=== PATIENT | female | born 1995 | race Caucasian/White ===

== ENCOUNTER → 2016-10-09 | Outpatient (CLI) | payer OTHER ==
[~2016-10-09] MED LIST: CALC500C3; POLY335019 PO; PREN-63; PRLSR20 PO; RANI150T3 PO; VALA500T39 PO
[2016-10-09 16:08] LABS: MANUAL MICROSCOPIC REQUIRED? NO; REVIEW REQ? NO; URINE APPEARANCE CLEAR (CLEAR); URINE COLOR YELLOW; URINE PH 5.5 (4.5-7.5)
[2016-10-09 16:09] LABS: URINE BILIRUBIN NEG (NEG); URINE NITRITE NEG (NEG); UROBILINOGEN NEG (NEG)
== END | disposition home or self-care (01) ==
LOC: C.LABSPEC 15:38
PROVIDERS: ATTEND Obstetrics & Gynecology
DX: O99.330 Smoking (tobacco) complicating pregnancy, unspecified trimester (principal); F17.200 Nicotine dependence, unspecified, uncomplicated

== ENCOUNTER → 2016-10-12 | Outpatient (CLI) | payer OTHER ==
[2016-10-12 14:41] LABS: BASO % 0.2 %; BASO ABS # 0.02 K/uL (0-0.2); COMPLETE YES; EOS % 1.6 %; HEMATOCRIT 39.2 % (37-47); IG% 0.3 %; LYMPH % 15.8 %; LYMPH ABS # 1.95 K/uL (1.2-3.4); MEAN CELL VOLUME 88.1 fL (80-100); MEAN CORPUSCULAR HEMOGLOBIN 30.1 pg (25-34); MEAN CORPUSCULAR HGB CONC 34.2 g/dl (32-36); MEAN PLATELET VOLUME 10.5 fL (7.4-10.4); MONO % 6.1 %; PLATELET COUNT 310 K/uL (130-400); RED BLOOD COUNT 4.45 M/uL (4.2-5.4); WHITE BLOOD COUNT 12.38 K/uL (4.8-10.8)
[2016-10-15 00:49] LABS: CHLAMYDIA TRACH RNA*** NOT DETECTED (NOT DETECTED); GC (NEIS GONORRHOEAE)RNA** NOT DETECTED (NOT DETECTED)
== END | disposition home or self-care (01) ==
LOC: C.LAB1850 12:36
PROVIDERS: ATTEND Obstetrics & Gynecology
DX: Z34.93 Encounter for supervision of normal pregnancy, unspecified, third trimester (principal)

== ENCOUNTER → 2016-10-12 | Outpatient (CLI) | payer OTHER | END | disposition home or self-care (01) | LOC: C.PAPS 11:36 | PROVIDERS: ATTEND Obstetrics & Gynecology | DX: Z12.4 Encounter for screening for malignant neoplasm of cervix (principal); Z33.1 Pregnant state, incidental ==

== ENCOUNTER → 2016-12-04 | Outpatient (CLI) | payer OTHER ==
[2016-12-04 16:51] LABS: BLOOD UREA NITROGEN 5 mg/dl (7-18); BUN/CREATININE RATIO 8.5 (10-20); CALCIUM 8.6 mg/dl (8.5-10.1); CARBON DIOXIDE 26 mmol/L (21-32); CHLORIDE 107 mmol/L (98-107); CREATININE 0.63 mg/dl (0.60-1.20); GLUCOSE 112 mg/dl (70-99); POTASSIUM 3.5 mmol/L (3.5-5.1); SODIUM 139 mmol/L (136-145)
[2016-12-04 16:55] LABS: CHOLESTEROL 170 mg/dl (0-200); CHOLESTEROL/HDL RATIO 3.1; HDL CHOLESTEROL 54 mg/dl; LDL CHOLESTEROL CALCULATED 97 mg/dl; TRIGLYCERIDES 94 mg/dl (0-150); VERY LOW DENSITY LIPOPROT CALC 19 mg/dl
== END | disposition home or self-care (01) ==
LOC: C.LABPBG 13:38
PROVIDERS: ATTEND Physician Assistant
DX: Z00.00 Encounter for general adult medical examination without abnormal findings (principal)

== ENCOUNTER → 2016-12-16 | Outpatient (CLI) | payer OTHER ==
[2016-12-16 18:26] LABS: GTGD 50 Grams
== END | disposition home or self-care (01) ==
LOC: C.LAB1850 12:22
PROVIDERS: ATTEND Obstetrics & Gynecology
DX: Z34.92 Encounter for supervision of normal pregnancy, unspecified, second trimester (principal)

== ENCOUNTER → 2017-03-11 | Outpatient (CLI) | payer OTHER ==
[2017-03-11 14:59] LABS: URINE APPEARANCE CLEAR (CLEAR); URINE BILIRUBIN NEG (NEG); URINE COLOR YELLOW; URINE NITRITE NEG (NEG); URINE PH 7.5 (4.5-7.5); URINE SPECIFIC GRAVITY 1.015 (1.000-1.030); UROBILINOGEN NEG (NEG)
[2017-03-11 15:01] LABS: HEMATOCRIT 38.4 % (37-47)
[2017-03-11 15:02] LABS: MANUAL MICROSCOPIC REQUIRED? NO; REVIEW REQ? NO
[2017-03-11 15:39] LABS: GTGD 50 Grams
== END | disposition home or self-care (01) ==
LOC: C.LAB1850 12:56
PROVIDERS: ATTEND Obstetrics & Gynecology
DX: Z34.93 Encounter for supervision of normal pregnancy, unspecified, third trimester (principal)

== ENCOUNTER 2017-04-22 16:22 | Outpatient (CLI) | payer BC ==
[~2017-04-22] VITALS: Ht 177.8 cm; Wt 102.3 kg
[~2017-04-22 16:22] MED LIST changes: -CALC500C3; -PREN-63; -RANI150T3 PO; -VALA500T39 PO
[2017-04-22] MEDS ORDERED: PREN-63 (17:07)
[2017-04-22] MEDS ORDERED: RANI150T3 PO (17:07)
[2017-04-22] MEDS ORDERED: CALC500C3 (17:07)
[2017-04-22 18:44] VITALS: Ht 177.8 cm; Wt 102.3 kg
== END 2017-04-22 19:05 | disposition home or self-care (01) ==
LOC: C.OPB 16:22 → C.LD 16:22 → C.OPB 19:05
PROVIDERS: ATTEND Obstetrics & Gynecology
DX: O62.9 Abnormality of forces of labor, unspecified (principal); Z3A.30 30 weeks gestation of pregnancy

== ENCOUNTER 2017-05-10 11:48 | Inpatient (IN) | payer BC ==
[~2017-05-10] VITALS: Ht 177.8 cm; Wt 104.3 kg
[~2017-05-10 11:48] MED LIST changes: +CALC500C3; -POLY335019 PO; +PREN-63; -PRLSR20 PO; +RANI150T3 PO
[2017-05-10] MEDS ORDERED: LACTATED RINGER'S 1000ML 1,000 ML IV PRN (16:01)
[2017-05-10] MEDS ORDERED: LACTATED RINGER'S 1000ML 500 ML IV PRN ×2 (16:01→19:50)
[2017-05-10] MEDS ORDERED: OXYTOCIN 30 UNITS/500ML NSS IV PRN (16:15)
[2017-05-10] MEDS ORDERED: PENICILLIN G POTASSIUM IV 3 MU in DEXTROSE 5% 100ML 100 ML IV PRN (16:15)
[2017-05-10] MEDS ORDERED: PENICILLIN G POTASSIUM IV 6 MU in DEXTROSE 5% 250ML 250 ML IV ONE (16:15)
[2017-05-10 16:21] LABS: HEMATOCRIT 38.1 % (37-47); MEAN CELL VOLUME 89.2 fL (80-100); MEAN CORPUSCULAR HGB CONC 33.6 g/dl (32-36); MEAN PLATELET VOLUME 10.9 fL (7.4-10.4); PLATELET COUNT 242 K/uL (130-400); RED BLOOD COUNT 4.27 M/uL (4.2-5.4); WHITE BLOOD COUNT 14.94 K/uL (4.8-10.8)
[2017-05-10] MEDS: LACTATED RINGER'S 1000ML 1,000 ML IV SCH ×2 (16:31→19:40)
[2017-05-10 16:52] VITALS: Ht 177.8 cm; Wt 104.3 kg
[2017-05-10] MEDS ORDERED: VALA500T39 PO (16:55)
[2017-05-10] MEDS ORDERED: EpHEDrine SULFATE INJ 50 MG/ML AMP ONE (18:57)
[2017-05-10] MEDS ORDERED: FENTANYL 2MCG/ML ROPIV 1.25MG/ML 100ML BAG EPI ONE (18:57)
[2017-05-10] MEDS ORDERED: BUPIVACAINE 0.25% 30 ML VIAL ONE (18:57)
[2017-05-10] MEDS ORDERED: FENTANYL CITRATE INJ 50 MCG/1 ML 2 ML VIAL ONE (18:58)
[2017-05-10] MEDS ORDERED: NALOXONE HCL INJ 1 MG in SODIUM CHLORIDE 0.9% 1000ML 1,000 ML IV PRN ×4 (19:50)
[2017-05-10] MEDS ORDERED: PROMETHAZINE HCL INJ 25 MG in SODIUM CHLORIDE 0.9% 50ML 50 ML IV PRN (20:00)
[2017-05-10] MEDS ORDERED: DiphenhydrAMINE HCL 50 MG/ML VIAL IV PRN (20:00)
[2017-05-10] MEDS ORDERED: ONDANSETRON INJ 2 MG/ML 2 ML VIAL IV PRN (20:00)
[2017-05-10] MEDS ORDERED: NALOXONE HCL INJ 0.4 MG/1 ML VIAL/CARP IV PRN (20:00)
[2017-05-10] MEDS ORDERED: RANITIDINE HCL 150 MG TAB PO ONE (20:00)
[2017-05-10] MEDS ORDERED: METOCLOPRAMIDE HCL INJ 20 MG in SODIUM CHLORIDE 0.9% 50ML 50 ML IV PRN (20:00)
[2017-05-10] MEDS ORDERED: FENTANYL 2MCG/ML ROPIV 1.25MG/ML 100ML BAG EPI PRN (20:00)
[2017-05-10] MEDS ORDERED: EpHEDrine SULFATE INJ 50 MG/ML AMP IV PRN (20:00)
[2017-05-10] MEDS ORDERED: NALBUPHINE HCL INJ 10 MG/ML AMP IV PRN (20:00)
[2017-05-11] VITALS (7 sets, daily range): BP systolic 110–132; BP diastolic 68–81; PULSE 67–92; TEMP 36.4–37.2; O2SAT 98–100
[2017-05-11] MEDS ORDERED: LACTATED RINGER'S 1000ML 1,000 ML IV SCH (00:43)
[2017-05-11] MEDS ORDERED: HYDROCORTISONE ACETATE 25 MG SUPP PR PRN (00:45)
[2017-05-11] MEDS ORDERED: ACETAMINOPHEN 325 MG TAB PO PRN (00:45)
[2017-05-11] MEDS ORDERED: BENZOCAINE 20% AER SPR 82.5 GM CAN EXT PRN (00:45)
[2017-05-11] MEDS ORDERED: OXYTOCIN 30 UNITS/500ML NSS IV PRN (00:45)
[2017-05-11] MEDS ORDERED: LANOLIN OINT EXT PRN ×2 (00:45)
[2017-05-11] MEDS ORDERED: SUPERCREAM 0.870 % 15GM JAR EXT PRN (00:45)
[2017-05-11] MEDS ORDERED: OXYCODONE/ACETAMINOPHEN 5-325 TAB PO PRN (00:45)
[2017-05-11] MEDS ORDERED: DIPHTHERIA/TETANUS/PERTUSSIS 0.5 ML SYR/VIAL IM. ONE (00:45)
--- NOTE | 2017-05-11 06:01 | Vaginal Delivery Summary ---
Vaginal Delivery Summary 21yo IOL for gHTN. She was induced with AROM/Pitocin, and an epidural was provided for pain relief. I was called to the room for delivery after she had brought the head to [facility], and with the next pushes, she delivered the 's head. The right shoulder was anterior, and the right arm was nuchal; it was gently reduced, then the left / posterior shoulder was delivered without difficulty. The remainder of the infant then followed. The cord was doubly clamped and then cut by the FOB. It was noted to be fairly short. The placenta then delivered spontaneously and intact with a 3VC. There were no perineal lacerations, and the bilateral labial abrasions were hemostatic and left without suture. The fundus was firm and lochia minimal immediately after delivery.
[2017-05-11] MEDS: IBUPROFEN 600 MG TAB PO PRN ×3 (06:34→20:30)
[2017-05-11] MEDS: PRENATAL VITAMIN TAB PO SCH (08:23)
[2017-05-11] MEDS: DOCUSATE SODIUM 100 MG CAP PO SCH ×2 (08:23→20:01)
--- NOTE | 2017-05-11 11:23 | Anesthesia Procedure Note ---
Anesthesia Epidural Removal Nt Date & Time May 11, 2017 at 11:23 Vital Signs Pain Intensity: 1.0 Vital Signs Past 12 Hours Date Time Temp Pulse Resp B/P (MAP) Pulse Ox O2 Delivery O2 Flow Rate FiO2 05/11/17 08:05 36.7 77 18 123/81 (95) 99 Room Air 05/11/17 08:05 99 Room Air 05/11/17 03:35 36.7 70 18 117/74 (88) Room Air 05/11/17 02:15 Room Air 05/11/17 02:15 36.4 78 20 132/68 (89) Room Air Notes Mental Status: alert / awake / arousable, participated in evaluation Nausea / Vomiting: adequately controlled Pain: adequately controlled Airway Patency, RR, SpO2: stable & adequate BP & HR: stable & adequate Hydration State: stable & adequate Neuraxial Anesthesia: was administered Anesthetic Complications: no major complications apparent, pt satisfied with anesthetic care Epidural: removed without complications, with tip intact
[2017-05-12 07:20] VITALS: BP 116/77; PULSE 66; TEMP 36.8; O2SAT 99
--- NOTE | 2017-05-12 07:48 | Progress Note ---
Subjective May 12, 2017. Subjective conversation w/ patient, physical exam, chart review, lab review Ambulation: ambulating normally Voiding: no voiding problems Diet Tolerance: Regular Diet Lochia: Moderate Objective Vital Signs Date Time Temp Pulse Resp B/P (MAP) Pulse Ox O2 Delivery O2 Flow Rate FiO2 05/11/17 23:15 99 Room Air 05/11/17 23:15 36.4 67 20 129/76 (93) 99 Room Air 05/11/17 20:25 36.8 72 20 114/76 (89) 99 Room Air 05/11/17 16:05 100 Room Air 05/11/17 16:05 36.4 76 18 115/80 (92) 100 Room Air 05/11/17 12:05 37.2 92 18 110/72 (85) 98 Room Air 05/11/17 08:05 36.7 77 18 123/81 (95) 99 Room Air 05/11/17 08:05 99 Room Air Physical Exam General Appearance: WELL-APPEARING Respiratory/Chest: lungs clear Abdomen: non tender Fundus: Firm Extremities: no calf tenderness Laboratory Results Last 24 Hours Test 05/12/17 07:17 Assessment and Plan Post- Day#: 1 Continue Routine Care: ccc
[2017-05-12 07:59] LABS: HEMATOCRIT 34.6 % (37-47)
[2017-05-12] MEDS: DOCUSATE SODIUM 100 MG CAP PO SCH (09:02)
[2017-05-12] MEDS: PRENATAL VITAMIN TAB PO SCH (09:02)
[2017-05-12] MEDS: IBUPROFEN 600 MG TAB PO PRN ×2 (09:03→15:49)
[2017-05-12 12:30] VITALS: BP 114/71; PULSE 69; TEMP 36.8; O2SAT 99
--- NOTE | 2017-05-12 13:53 | Discharge Instructions ---
Discharge Instructions Date of Service May 12, 2017. Admission Reason for Admission: Induction Discharge Discharge Diagnosis / Problem: normal delivery Discharge Goals Goal(s): Routine recovery after delivery Medications Continue Dispensed Medications: supercream, dermaplast, tucks, lansinoh Activity Recommendations Activity Limitations: per Instructions/Follow-up section . Instructions / Follow-Up Instructions / Follow-Up ACTIVITY RECOMMENDATIONS: * Gradual return to full activity over the next 2-3 weeks. * No lifting - nothing heavier than baby over the next 2-3 weeks. * Do not engage in vigorous exercise, sexual activity or sports until cleared by your physician. * Do not drive or operate any motorized equipment until cleared by your physician. * You may shower/bathe daily. MEDICATIONS: For discomfort or pain, you may use Acetaminophen (Tylenol), Ibuprofen (Advil), or Naproxen (Aleve) following the package directions. For constipation you may use Colace following the package directions. BREAST CARE: If you are not breast feeding: * Wear a supportive bra 24 hours a day for one to two weeks. * Avoid stimulating your breasts and nipples as much as possible during the first few weeks after delivery. * When taking a shower, have the warm water hit your back, not breasts. * When your breasts feel full, apply ice packs. Usually three to four times a day helps ease the discomfort. * Take a mild pain medication (Tylenol / Motrin) when you are uncomfortable. If breast feeding: * Use breast milk to lubricate nipples. Lansinoh cream may be used for sore nipples. You do not need to remove cream prior to breast feeding. If using a different brand of cream, check the label for directions regarding removal of cream prior to nursing. * Wear a supportive bra. * If having problems with breasts or breast feeding, call a law firm consultant or your health care provider. EPISIOTOMY CARE: After delivery, if you have an episiotomy (stitches), the following steps will ease discomfort and aid healing. * For the first 24 hours after delivery, place ice packs next to your episiotomy to help reduce swelling. * After the first 24 hour-period, sitz baths, either portable or in the tub, are suggested. A shower with a shower arm sprayed over the episiotomy may be comforting. * [place] care should be done after each voiding and bowel movement. Squirt warm water from a plastic bottle over the perineum (region of the body between the anus and urinary opening) and pat dry. * Use Dermoplast to ease discomfort. Shake container. [place] directly over the episiotomy. Place a Tucks on a clean sanitary pad next to your episiotomy. SPECIAL CARE INSTRUCTIONS: When you are discharged from the hospital, it is important for you to follow the instructions listed below: * During the first week at home, you should be able to care for yourself and your baby. In addition, the usual light household activities are encouraged. * Limit your activities to the way you feel. Do not try to clean the house or move furniture. Be sensible. * If you actively engage in sports and have done so up until the time of your delivery, you may resume these activities as soon as you feel able. This may take up to one month or even longer. Use good judgment. * Continue to take your vitamins for at least six weeks after the of your baby. * Your diet need not be limited unless you were on a special diet before your delivery. Breast-feeding mothers need around 2500 calories per day and at least 64-80 ounces of fluid per day (8 to 10 glasses). * You should eat foods from the four major food groups. Crash diets or fad diets are to be avoided. Eating lean meats, fresh fruits and vegetables, low-fat dairy products, high fiber foods and a regular exercise program, will help you get back to your pre- weight without putting your health at risk. * Constipation is sometimes a problem after delivery. Take a mild laxative as needed. If breast feeding, Milk of Magnesia is acceptable to use. You may use a suppository or Fleets enema if no episiotomy. * A daily shower or tub bath is suggested. Be sure to thoroughly and gently dry the perineum. * A bloody vaginal discharge will usually continue until around four weeks post . A small amount of bleeding may continue for as long as six weeks. Vaginal discharge changes from the bright red bleeding after delivery to pink then brownish and finally yellowish-pink before becoming white and disappearing. * Bleeding may increase with activity. Your first period may come in 4-8 weeks. If you are breast feeding, your period may be delayed even longer. * [place] (sex) can begin whenever both you and your partner feel comfortable and do not have any form of genital infection. It is recommended that you wait at least six weeks for internal and external healing to occur. If you have questions, please talk to your health care practitioner. A condom should be used to prevent infection and . * Foreplay, gentle intercourse and lubrication is very important the first several times to prevent pain. A water-based lubricant such as K-Y jelly or Astroglide may be used. * If you have RH negative blood and your baby is RH positive, you will receive RHOGAM by injection prior to discharge. The nurse will give you a card to keep with you that has the date and place that you received RHOGAM after delivery. * During your care, you had a Rubella screen done to check for the presence of rubella antibodies in your blood. If your test was negative, you will receive a Rubella vaccine prior to discharge. This vaccine may cause a fever, soreness at the injection site and flu-like symptoms. If these symptoms persist, notify your health care practitioner. is not advised for one month after a Rubella vaccine. * Verbalizes understanding of car seat law as reviewed with patient nursing. * Car Seat hand-out given and reviewed with patient by nursing. * Shaken baby information reviewed with patient by nursing. Call you doctor if: * Heavy bleeding (saturating several pads an hour) or passing clots the size of your fist. * A fever >101 degrees F (38.3 degrees C) on two occasions four hours apart and /or chills. * Unusual pain in the pelvic or vaginal areas. * "Baby Blues" lasting longer than two weeks. If you have any questions or concerns, call your health care practitioner at . FOLLOW UP VISIT: * Please call the office at to schedule a 6 week examination. It is important you keep this appointment. It is important for you to make arrangements for either yearly or twice yearly check-ups thereafter. Current Hospital Diet Patient's current hospital diet: Regular OB Diet Discharge Diet Recommended Diet: Regular OB Diet Pending Studies Studies pending at discharge: no Medical Emergencies . Who to Call and When: Medical Emergencies: If at any time you feel your situation is an emergency, please call 911 immediately. . Non-Emergent Contact Non-Emergency issues call your: [employer] . . "Provider Documentation" section prepared by Rachel Lira. . VTE Core Measure Inpt VTE Proph given/why not?: Treatment not indicated
[2017-05-12 16:00] VITALS: BP 124/77; PULSE 72; TEMP 36.9
[2017-05-12 16:49] VITALS: BP_DIAS 77; PULSE 72; TEMP 36.9
== END 2017-05-12 20:55 | disposition home or self-care (01) | DRG 775 ==
LOC: C.LD 14:56 → C.OBG 05-11 02:07
PROVIDERS: ADMIT Obstetrics & Gynecology; ATTEND Obstetrics & Gynecology
PROC: 3E033VJ Introduction of Other Hormone into Peripheral Vein, Percutaneous Approach (ICD-10-PCS; principal; 2017-05-11)
PROC: 10E0XZZ Delivery of Products of Conception, External Approach (ICD-10-PCS; principal; 2017-05-11)
DX: O80 Encounter for full-term uncomplicated delivery (principal); Z3A.37 37 weeks gestation of pregnancy; Z37.0 Single live birth

== ENCOUNTER 2021-09-08 00:27 | Inpatient (IN) ==
[2021-09-08] MEDS ORDERED: OXYTOCIN 30 UNITS/500 ML BAG IV PRN ×2 (00:42→00:50)
[2021-09-08] MEDS ORDERED: LACTATED RINGER'S 1,000 ML IV PRN (00:42)
[2021-09-08] MEDS ORDERED: ACETAMINOPHEN 325 MG TAB PO PRN (00:50)
[2021-09-08] MEDS ORDERED: BENZOCAINE 20% AER SPR 82.5 GM CAN EXT PRN (00:50)
[2021-09-08] MEDS ORDERED: SUPERCREAM 0.870% 15 GM JAR EXT PRN (00:50)
[2021-09-08] MEDS ORDERED: DIPHTHERIA/TETANUS/PERTUSSIS 0.5 ML SYR/VIAL IM ONE (00:50)
[2021-09-08] MEDS ORDERED: HYDROCORTISONE ACETATE 25 MG SUPP PR PRN (00:50)
[2021-09-08] MEDS ORDERED: bisacodyL 10 MG SUPP PR PRN (00:50)
[2021-09-08 01:06] LABS: Hemoglobin 12.4 g/dL (12.0-16.0); Mean Corpuscular Hemoglobin 28.8 pg (25-34); Mean Corpuscular Hgb Conc 32.6 g/dL (32-36); Mean Corpuscular Volume 88.2 fL (80-100); Mean Platelet Volume 11.3 fL (7.4-10.4); Platelet Count 261 K/uL (130-400); RDW Coefficient of Variation 14.2 % (11.5-14.5); RDW Standard Deviation 46.4 fL (36.4-46.3); Red Blood Count 4.31 M/uL (4.2-5.4); White Blood Count 19.01 K/uL (4.8-10.8)
[2021-09-08] MEDS ORDERED: LIDOCAINE 1% LOCAL 20 ML VIAL ONE (01:45)
[2021-09-08] MEDS: IBUPROFEN 600 MG TAB PO PRN ×2 (06:34→19:49)
[2021-09-08] MEDS: PRENATAL VITAMIN 1 TAB PO SCH (08:16)
[2021-09-08] MEDS: DOCUSATE SODIUM 100 MG CAP PO SCH ×2 (08:16→19:49)
[2021-09-08] MEDS: FERROUS SULFATE 325 MG TAB PO SCH (08:16)
[2021-09-08] MEDS ORDERED: FLUARIX QUADRIVALENT 0.5 ML SYR IM ONE (09:00)
--- NOTE | 2021-09-09 05:53 | Obstetrical Progress Note ---
Date of Service <Bobby Stone DO - Last Filed: 09/09/21 07:11> September 09, 2021 Assessment & Plan <Bobby Stone DO - Last Filed: 09/09/21 07:11> (1) Encounter for care and examination after delivery: 26 yo post day 1 from vaginal delivery, doing well. -Continue routine post care. - vital signs reviewed and WNL. (Tmax 37.1) -Blood type O+, GBS +, Rubella [place] -Encourage ambulation, monitor and control pain with Motrin, tylenol PRN, resume regular diet, monitor lochia. -encourage breast feeding. -hemoglobin 11.5 -Discussed discharge with patient. Patient will most likely stay today due to GBS+. <Shaye Melgoza MD - Last Filed: 09/09/21 08:19> (1) Encounter for care and examination after delivery: Subjective <Bobby Stone - Last Filed: 09/09/21 07:11> Ambulation: ambulating normally Voiding: no voiding problems Passing Gas:: Yes Diet Tolerance:: regular diet Lochia:: Small Feeding Type:: breast feeding Current Pain Level(1-10): 0 Review of Systems Denies fever, chills, sweats Denies shortness of breath, difficulty breathing, chest pain, palpitations, chest pressure. Denies breast pain. Denies dysuria. Denies headache or changes in vision Physical Exam <Bobby Stone - Last Filed: 09/09/21 07:11> General: Alert, oriented. No acute distress. Cardiac: Regular rate and rhythm, no murmurs/rubs/gallops. Respiratory: Clear to auscultation bilaterally a/p, no wheezes/rales/rhonchi. No increased work of breathing. Symmetrical chest rise. No respiratory distress. Abdomen: Soft, nontender, nondistended. Bowel sounds present. Uterus: Uterine fundus firm, palpable 2 cm below umbilicus. Lower Extremities: No lower extremity edema or swelling. No deep calf pain. Stephanie's negative bilaterally Results & Data ([facility]) <Bobby Mcgowanguerokarin - Last Filed: 09/09/21 07:11> Vital Signs (Past 12 Hours) Vital Signs Temp Pulse Resp BP Pulse Ox 09/08/21 23:00 36.7 C 72 16 123/79 98 09/08/21 19:40 36.5 C 88 16 127/79 96 <Shaye Melgoza MD - Last Filed: 09/09/21 08:19> Co-Signing Physician Notes Resident Physician Supervision Note: I interviewed and examined the patient. Discussed with Dr. Stone and agree with findings and plan as documented in the note. Any exceptions or clarifications are listed here: PP1 s/p en route, doing well. VSS, exam benign and wnl. Continue routine pp care Documented By: Shaye Melgoza MD Resident Activity Tracking <Bobby Stone DO - Last Filed: 09/09/21 07:11> Resident Involvement: Resident Care Provided Care Provided: OB Delivery
[2021-09-09] MEDS: IBUPROFEN 600 MG TAB PO PRN ×2 (06:30→20:19)
[2021-09-09 06:47] LABS: Hematocrit (blood only) 35.2 % (37-47); Hemoglobin 11.5 g/dL (12.0-16.0)
[2021-09-09] MEDS: DOCUSATE SODIUM 100 MG CAP PO SCH ×2 (08:30→21:42)
[2021-09-09] MEDS: FERROUS SULFATE 325 MG TAB PO SCH (08:30)
[2021-09-09] MEDS: PRENATAL VITAMIN 1 TAB PO SCH (08:30)
[2021-09-09] MEDS ORDERED: bisacodyL 5 MG TABEC PO SCH (20:00)
[2021-09-10 00:52] VITALS: O2SAT 98
--- NOTE | 2021-09-10 06:26 | Obstetrical Progress Note ---
Date of Service <Bobby Stone DO - Last Filed: 09/10/21 07:17> September 10, 2021 Assessment & Plan <Bobby Stone DO - Last Filed: 09/10/21 07:17> (1) Encounter for care and examination after delivery: 26 yo post day 2 from vaginal delivery, doing well. -Continue routine post care. - vital signs reviewed and WNL. (Tmax 37.1) -Blood type O+, GBS +, Rubella [place] -Encourage ambulation, monitor and control pain with Motrin, tylenol PRN, resume regular diet, monitor lochia. -encourage breast feeding. -hemoglobin 11.5 -Discussed discharge with patient. Patient will follow up with Dr. Tafoya in [facility] in 6 weeks. <Gretchen Mcmillan, - Last Filed: 09/10/21 07:53> (1) Encounter for care and examination after delivery: Subjective <Bobby Stone DO - Last Filed: 09/10/21 07:17> Ambulation: ambulating normally Voiding: no voiding problems Passing Gas:: Yes Diet Tolerance:: regular diet Lochia:: Small Feeding Type:: breast feeding Current Pain Level(1-10): 0 Review of Systems Denies fever, chills, sweats Denies shortness of breath, difficulty breathing, chest pain, palpitations, chest pressure. Denies breast pain. Denies dysuria. Denies headache or changes in vision Physical Exam <Bobby Stone DO - Last Filed: 09/10/21 07:17> General: Alert, oriented. No acute distress. Cardiac: Regular rate and rhythm, no murmurs/rubs/gallops. Respiratory: Clear to auscultation bilaterally a/p, no wheezes/rales/rhonchi. No increased work of breathing. Symmetrical chest rise. No respiratory distress. Abdomen: Soft, nontender, nondistended. Bowel sounds present. Uterus: Uterine fundus firm, palpable 2 cm below umbilicus. Lower Extremities: No lower extremity edema or swelling. No deep calf pain. Stephanie's negative bilaterally Results & Data ([facility]) <Bobby Stone DO - Last Filed: 09/10/21 07:17> Vital Signs (Past 12 Hours) Vital Signs Temp Pulse Resp BP Pulse Ox 09/10/21 00:26 36.7 C 76 18 107/71 98 09/09/21 19:56 36.8 C 88 18 121/70 99 <Gretchen Mcmillan DO - Last Filed: 09/10/21 07:53> Co-Signing Physician Notes Resident Physician Supervision Note: I interviewed and examined the patient. Discussed with Dr. Stone and agree with findings and plan as documented in the note. Any exceptions or clarifications are listed here: PPD#2 doing well. Reviewed DC instructions, followup 6w pp in office. Documented By: Gretchen Mcmillan DO Resident Activity Tracking <Bobby Stone DO - Last Filed: 09/10/21 07:17> Resident Involvement: Resident Care Provided Care Provided: OB Delivery
[2021-09-10] MEDS: DOCUSATE SODIUM 100 MG CAP PO SCH (08:25)
[2021-09-10] MEDS: PRENATAL VITAMIN 1 TAB PO SCH (08:25)
[2021-09-10] MEDS: FERROUS SULFATE 325 MG TAB PO SCH (08:26)
[2021-09-10] MEDS: IBUPROFEN 600 MG TAB PO PRN (08:26)
[2021-09-10 10:02] VITALS: BP 131/77; PULSE 94; TEMP 98.6
--- NOTE | 2021-09-22 13:22 | Delivery Summary ---
DATE OF SERVICE: 09/08/2021 PROCEDURE: Normal spontaneous vaginal delivery with second-degree perineal laceration repair. SURGEON: Xavi Tafoya MD. PREOPERATIVE DIAGNOSES: 1. Single intrauterine at 39 weeks 5 days gestational age. 2. Spontaneous labor. 3. Tobacco use during . 4. Group B streptococcus positive. POSTOPERATIVE DIAGNOSES: 1. Single intrauterine at 39 weeks 5 days gestational age. 2. Spontaneous labor. 3. Tobacco use during . 4. Group B streptococcus positive. 5. Status post procedure. ESTIMATED BLOOD LOSS: 200 mL. DRAINS: None. FLUIDS: Continuous lactated Ringer. URINE OUTPUT: Not measured. COMPLICATIONS: None. FINDINGS: Viable female with weight 8 pounds 1 ounce and Apgars of 8 and 9 at one and five m inutes respectively. INDICATIONS: Suha is a 26-year-old , admitted at 39 weeks 5 days' gestational age, in active labor. The patient progressed rapidly in labor and felt a strong urge to push. DESCRIPTION OF PROCEDURE: The patient progressed to 10 cm dilated, 100% effaced, positive 2 station, pushed over intact perineum and delivered a viable female with weight and Apgars as noted abo ve. Head of the delivered in RANI position, restituted to right transverse. No nuchal cord w as noted. Body and shoulders quickly followed. was noted to be vigorous upon delivery. One minute delayed cord clamping was initiated. Cord was then double clamped and cut. Cord blood was o btained. Attention was then turned to delivery of placenta, which was delivered intact, 3-vessel cor d, gentle cord traction. On inspection of the perineum, vagina, cervix, there was noted to be a seco nd-degree perineal laceration, which was repaired with a traditional crown stitch using 2-0 Vicryl. Needle, sponge, and instrument counts were correct at the completion of the case. Both mother and ne maría are stable in the immediate post-delivery period. Job ID: [id number]
== END 2021-09-10 13:25 | disposition home or self-care (01) | DRG 807 ==
LOC: 4S1 00:27 → 4S2 02:53

== ENCOUNTER 2023-12-16 22:34 | Observation (INO) ==
[2023-12-17 00:27] LABS: Basophils # (auto) 0.06 K/uL (0.00-0.20); Basophils % (auto) 0.5 %; Eosinophils # (auto) 0.41 K/uL (0.00-0.50); Eosinophils % (auto) 3.6 %; Hematocrit (blood only) 42.8 % (37.0-47.0); Hemoglobin 13.6 g/dl (12.0-16.0); Immature Granulocytes # (auto) 0.04 K/uL (0.01-0.20); Immature Granulocytes % (auto) 0.4 %; Lymphocytes # (auto) 2.74 K/uL (1.20-3.40); Lymphocytes % (auto) 24.2 %; Mean Corpuscular Hemoglobin 28.9 pg (25.0-34.0); Mean Corpuscular Hgb Conc 31.8 g/dL (32.0-36.0); Mean Corpuscular Volume 91.1 fL (80.0-100.0); Mean Platelet Volume 10.2 fL (9.4-12.4); Monocytes # (auto) 0.81 K/uL (0.11-0.59); Monocytes % (auto) 7.2 %; Neutrophils # (auto) 7.25 K/uL (1.40-6.50); Neutrophils % (auto) 64.1 %; Platelet Count 257 K/uL (130-400); RDW Coefficient of Variation 12.1 % (11.5-14.5); RDW Standard Deviation 40.4 fL (36.4-46.3); White Blood Count 11.31 K/ul (4.8-10.8)
[2023-12-17] MEDS: SODIUM CHLORIDE 0.9% 1,000 ML IV ONE (00:30)
[2023-12-17] MEDS: dexAMETHasone**PF** 10 MG/ML VIAL IV ONE (00:30)
[2023-12-17] MEDS: AMPICILLIN/SULBACTAM SOD 3,000 MG in SODIUM CHLOR 0.9% MINI-B 100 ML IV STA (00:30)
[2023-12-17 00:44] LABS: Alanine Aminotransferase 15 U/L (7-52); Albumin Globulin Ratio 1.5 (0.9-2); Albumin Level 4.5 gm/dl (3.4-5.0); Alkaline Phosphatase 110 U/L (34-104); Anion Gap 7 (3-11); BUN Creatinine Ratio 15.3 (10-20); Bilirubin,Total 0.4 mg/dl (0.2-1.0); Blood Urea Nitrogen 11 mg/dl (6-23); Calcium 9.4 mg/dl (8.6-10.3); Carbon Dioxide 24 mmol/L (21-32); Chloride 106 mmol/L (98-107); Creatinine Clr Calc Pharmacy 152.8 ml/min; Est GFR (African American) 130.2 ml/min; Est GFR (Non-African American) 112.4 ml/min; Glucose 92 mg/dl (70-99(Fasting)); Sodium 137 mmol/L (136-145); Total Protein 7.5 gm/dl (6.0-8.3)
[2023-12-17] MEDS: OPTIRAY 320 100ml IV ONE (01:06)
--- NOTE | 2023-12-17 02:13 | Emergency Department Note ---
Impression & Plan Abscess of periosteum without osteomyelitis, Acute periapical abscess ED Provider Note CHIEF COMPLAINT: Left-sided facial swelling and pain HISTORY OF PRESENT ILLNESS: This 28-year-old female patient presents to the emergency department via private vehicle for evaluation of left-sided facial pain and swelling. The patient states the pain started earlier in the week in her left upper teeth. She states she contacted her dentist and was started on amoxicillin which she has been taking for the past 2 days. The patient states the dental pain specifically seems to have improved, but she is continuing to experience facial pain on the left side. She states the area under her left eye appears somewhat inflamed. She has been taking Tylenol and ibuprofen with minimal improvement of her symptoms. She denies any fever or chills. No nausea or vomiting. She is scheduled to actually follow-up with her dentist next Wednesday. REVIEW OF SYSTEMS: A 10 system review of systems was performed with positives and pertinent negatives listed in the history of present illness. All other systems were reviewed and are negative. ALLERGIES: Guaifenesin PHYSICAL EXAM: VITALS: Vitals are noted on the nurse's note and reviewed by myself. Vital signs stable. GENERAL: This is a 28-year-old female, in no acute distress, nondiaphoretic, well-developed well-nourished. SKIN: The skin was without rashes, erythema, edema, or bruising. There is no tenting of the skin. Capillary refill less than 2 seconds. HEAD: Normocephalic atraumatic. EARS: External auditory canals clear, tympanic membranes pearly donovan without erythema or effusion bilaterally. No hemotympanum. Negative naranjo sign EYES: Pupils equal round and reactive to light and accommodation. Conjunctivae without injection, sclerae without icterus. Extraocular movements intact. NOSE: Patent, turbinates without inflammation or discharge. No sinus tenderness. MOUTH: Mucous membranes moist. Tonsils are not enlarged. Pharynx without erythema or exudate. Uvula midline. Airway patent. Tongue does not deviate. NECK: Supple without nuchal rigidity. No lymphadenopathy. Cervical spine is nontender. No JVD. HEART: Regular rate and rhythm without murmurs gallops or rubs. LUNGS: Clear to auscultation bilaterally without wheezes, rales or rhonchi. No retractions or accessory muscle use. ABDOMEN: Positive bowel sounds x 4. Soft, nontender, without masses or organomegaly. Massey sign negative. No guarding or rebound tenderness. MUSCULOSKELETAL: No muscle atrophy, erythema, or edema noted. Full range of motion without joint tenderness in all extremities. No tenderness to palpation. Normal gait. Strength 5/5 throughout. NEURO: Patient was alert and oriented to person place and time. No focal neurological deficits. Imaging as interpreted by myself and the radiologist revealed periapical abscess about tooth #9 with adjacent periosteal abscess measuring 9.8 x 8.0 x 6.6 mm with extensive inflammation of the surrounding soft tissues, with radiologist interpretation as above. I agree with the radiologist's findings as based upon my independent interpretation. EMERGENCY DEPARTMENT COURSE: The patient was seen and evaluated as above. The patient presents for left-sided facial swelling and pain. This is in the setting of recent dental infection. She has been on 2 days worth of oral antibiotics as an outpatient. She is afebrile at this time. She does have some infraorbital edema on examination. Options of care were discussed with the patient. IV access was obtained, labs were drawn. Patient was medicated with IV fluids, Decadron, Unasyn. Labs reviewed. Mild leukocytosis of 11,000. No anemia or thrombocytopenia. Renal, hepatic function and electrolytes without significant abnormality CT imaging was performed reviewed by myself and radiologist as noted. The patient has concerning findings for a periapical abscess with adjacent periosteal abscess and extensive inflammation of the surrounding soft tissues. Dental consultation was recommended. I did discuss the case with Dr. Mesa, maxillofacial surgeon on-call. He did offer for the patient to be admitted with IV antibiotics and he would see her with possible surgery tomorrow afternoon versus discharged home with outpatient follow-up with her dentist on Wednesday as previously scheduled, but starting the patient on Augmentin in place of the amoxicillin. He did ask that the patient remain n.p.o. if she decides to stay in patient for a possible procedure later in the day. I discussed the findings with the patient at bedside. I offered her admission versus discharge with outpatient follow-up. The patient was anxious about being discharged home given her symptoms. She did elect to stay in the hospital for inpatient care. I discussed case with the bindery production manager. I discussed case with Paxton Chua hospitalist. He did agree to see and evaluate the patient. Please see hospitalist and surgeon dictation regarding ongoing management and final disposition. Case was discussed with the attending physician. I attest that I have personally reviewed the patient medication list. I attest that I have reviewed the patient's blood pressure and it was found to be elevated. GCS: 15 In the evaluation and treatment of this patient the following differential diagnoses were entertained: Dental caries, dental abscess, Ludwigs angina, Vincent angina, dental fracture, facial cellulitis, parotitis, osteomyelitis, sinus infection, peritonsillar abscess. The chart was completed utilizing [employer] Speech voice recognition software. Grammatical errors, random word insertions, pronoun errors, and incomplete sentences are an occasional consequence of this system due to software limitations, ambient noise, and hardware issues. Any formal questions or concerns about the content, text, or information contained within the body of this dictation should be directly addressed to the provider for clarification. 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 Asthma Chronic constipation Pre-hypertension Tobacco use Cholelithiasis Leukopenia Hyperhidrosis Herpes simplex Anxiety and depression Gestational hypertension Surgical History H/O wisdom tooth extraction S/P excision of ganglion cyst Family History Mother Alcohol abuse Anxiety Depression Bipolar disorder Father Alcohol abuse Drug abuse Sister Gallbladder disease Breast cancer, Onset Age: 30 Grandmother (Maternal) Breast cancer Grandfather (Maternal) Myocardial infarction Aunt Uterine cancer Other Hypertension Denies family history of Colon cancer Ovarian cancer Prostate cancer Social History Smoking Status: Current every day smoker Tobacco Type: Cigarettes Age Started Using Tobacco: 12; packs per day: 1; Cigarettes Per Day: smokes 1 PPD since 12, quit for 2 years; Second Hand Exposure: No; Do You Dip or Chew Tobacco: No; Hx Alcohol Use: No Hx Substance Use: No Preferred Language: Gibraltarian Communication Ability: Effective Visual Impairment: No Limitations Hearing Ability: Normal Pearl Stringer Required: No Beliefs That Will Affect Care: None marital status: marital status details: JOO Warren (33) [phone] Current Living Situation: Family and Other Current Living Situation Comment: son, daughter and step child. dogs, cat current occupational status: employed current occupation: [employer] How many Children do You have Comment: 2 biological children, 1 step child Feels Safe at Home: Yes Childhood Exposure to Second-Hand Smoke: Yes Diet: regular caffeine: Yes (Soda x occasionally Energy drinks occasionally) during the past year weight has: remained stable Dental Care, Regularly: No Physical Activity Frequency: Does not Exercise Physical Activity Frequency Comment: at work Seatbelt Use: always Sunscreen Use: Yes Assistive Devices: None Allergies Allergies Allergy/AdvReac Type Severity Reaction Status Date / Time guaifenesin AdvReac Intermediate Jittery Verified 12/17/23 00:05 Home Meds Home Medications Medication Instructions Recorded Confirmed fluticasone propionate 50 2 spray intranasal DAILY PRN 11/09/22 12/17/23 mcg/actuation nasal Congestion spray,suspension (Flonase Allergy Relief) acetaminophen 500 mg tablet 1,000 mg PO Q6H PRN PAIN/FEVER 12/17/23 12/17/23 (Tylenol Extra Strength) amoxicillin 500 mg capsule 500 mg PO QID 12/17/23 12/17/23 ibuprofen 200 mg tablet 600 mg PO Q6H PRN PAIN/FEVER 12/17/23 12/17/23 Previous Rx's Medication Instructions Recorded betamethasone dipropionate 0.05 % 1 applic topical BID PRN skin 03/08/23 topical cream irritation #45 grams albuterol sulfate 90 mcg/actuation 2 puff inhalation Q6H PRN 08/31/23 aerosol inhaler shortness of breath or wheezing #8.5 grams hydroxychloroquine 200 mg tablet 200 mg PO BID #60 tabs 10/06/23 Results & Data (ED) Vital Signs Vital Signs - 24 hr 12/16/23 22:37 12/16/23 23:38 Temperature 36.5 C Temperature Source Temporal Artery Scan Pulse Rate 107 H Respiratory Rate 18 Respiratory Effort / Characteristics Non-Labored Respiratory Depth Normal Blood Pressure 167/91 H Blood Pressure Mean 116 Pulse Oximetry 100 Oxygen Delivery Method Room Air Room Air Sepsis Recent Fever Within 48 Hours No Sepsis New/Unexplained Change in Mental Status No Sepsis Action Taken by Nursing No Action Required Laboratory Data 12/17/23 00:07 12/17/23 02:04 Lab Results 12/17/23 12/17/23 Range/Units 00:07 02:04 WBC 11.31 H (4.8-10.8) K/ul RBC 4.70 (4.20-5.40) M/uL Hgb 13.6 (12.0-16.0) g/dl Hct 42.8 (37.0-47.0) % MCV 91.1 (80.0-100.0) fL MCH 28.9 (25.0-34.0) pg MCHC 31.8 L (32.0-36.0) g/dL RDW Std Deviation 40.4 (36.4-46.3) fL RDW Coeff of Arash 12.1 (11.5-14.5) % Plt Count 257 (130-400) K/uL MPV 10.2 (9.4-12.4) fL Immature Gran % (Auto) 0.4 % Neut % (Auto) 64.1 % Lymph % (Auto) 24.2 % [place] % (Auto) 7.2 % Eos % (Auto) 3.6 % Baso % (Auto) 0.5 % Neut # (Auto) 7.25 H (1.40-6.50) K/uL Lymph # (Auto) 2.74 (1.20-3.40) K/uL [place] # (Auto) 0.81 H (0.11-0.59) K/uL Eos # (Auto) 0.41 (0.00-0.50) K/uL Baso # (Auto) 0.06 (0.00-0.20) K/uL Immature Gran # (Auto) 0.04 (0.01-0.20) K/uL Sodium 137 (136-145) mmol/L Potassium TNP 3.8 Chloride 106 (98-107) mmol/L Carbon Dioxide 24 (21-32) mmol/L Anion Gap 7 (3-11) BUN 11 (6-23) mg/dl Creatinine 0.72 (0.6-1.2) mg/dl Est Cr Clr Drug Dosing 152.8 ml/min Est GFR ( Amer) 130.2 ml/min Est GFR (Non-Af Amer) 112.4 ml/min BUN/Creatinine Ratio 15.3 (10-20) Glucose 92 (70-99(Fasting)) mg/dl Calcium 9.4 (8.6-10.3) mg/dl Total Bilirubin 0.4 (0.2-1.0) mg/dl AST TNP 11 L ALT 15 (7-52) U/L Alkaline Phosphatase 110 H (34-104) U/L Total Protein 7.5 (6.0-8.3) gm/dl Albumin 4.5 (3.4-5.0) gm/dl Globulin 3.0 (2.5-4.0) gm/dl Albumin/Globulin Ratio 1.5 (0.9-2) Administered Medications Discontinued Medications Dexamethasone Sodium Phosphate (DexamethasonePf 10 Mg/Ml Vial) 10 mg IV NOW ONE Stop: 12/16/23 23:39 Last Admin: 12/17/23 00:30 Dose: 10 mg Documented By: WALTER Sodium Chloride (Nss) 1,000 mls @ 999 mls/hr IV .Q1H1M ONE Stop: 12/17/23 00:38 Last Infusion: 12/17/23 01:45 Dose: Infused Documented By: Admin: 12/17/23 00:30 Dose: 999 mls/hr Documented By: WALTER Ampicillin Sodium/Sulbactam Sodium 3,000 mg/ Sodium Chloride 100 mls @ 200 mls/hr IV NOW STA Stop: 12/17/23 00:07 Last Infusion: 12/17/23 01:03 Dose: Infused Documented By: Admin: 12/17/23 00:30 Dose: 200 mls/hr Documented By: WALTER Ioversol (Optiray 320 100ml) 93 ml IV ONCE ONE Stop: 12/17/23 01:07 Last Admin: 12/17/23 01:06 Dose: 93 ml Documented By: BJORN Imaging Data Radiologist's Impression: Face CT 12/16/23 23:38 CR Exam(s): CT FACIAL With Contrast IV Amt: 93 ml opti 320 EXAM: CT Head and Maxillofacial With Intravenous Contrast CLINICAL HISTORY: Reason for exam: left facial swelling/pain. TECHNIQUE: Axial computed tomography images of the head/brain and face with intravenous contrast. CTDI is 36.26 mGy and DLP is 668.25 mGy-cm. Automated exposure control was utilized for the study. A dose lowering technique was utilized adhering to the principles of ALARA. CONTRAST: Patient received 93 ml opti 320 of IV contrast COMPARISON: No relevant prior studies available. FINDINGS: Brain: Unremarkable. No hemorrhage. No edema. Normal enhancement. Ventricles: Unremarkable. No ventriculomegaly. Bones/joints: No acute fracture. There is a periapical lucency about tooth #9. Soft tissues: There is a small periosteal abscess over the left anterior maxilla measuring 9.8 x 8.0 x 6.6 mm with extensive inflammation of the surrounding soft tissues. Prominent cervical lymph nodes. Sinuses: Unremarkable as visualized. No acute sinusitis. Mastoid air cells: Unremarkable as visualized. No mastoid effusion. Orbits: Unremarkable as visualized. IMPRESSION: Findings concerning for periapical abscess about tooth #9 with adjacent periosteal abscess measuring 9.8 x 8.0 x 6.6 mm with extensive inflammation of the surrounding soft tissues. Recommend dental consult. Communications: Verify Receipt Electronically signed by: Pauly Ramirez MD 12/17/23 02:21 AM Discharge Plan Visit Data Chief Complaint: Facial Injury/Pain Stated Complaint: FACIAL SWELLING-?DENTAL ABCESS-CURENTLY ON ABX ED Provider: Esa Ivey ED Midlevel Provider: Izabel Barrow Discharge Problem: Abscess of periosteum without osteomyelitis, Acute periapical abscess Patient Disposition: Being Evaluated by Hospitalist Forms Stand Alone Forms: [facility] Prescriptions Prescriptions: No Action albuterol sulfate 90 mcg/actuation HFA aerosol inhaler 2 puff inhalation Q6H PRN (Reason: shortness of breath or wheezing) Qty: 8.5 1RF fluticasone propionate [Flonase Allergy Relief] 50 mcg/actuation spray,suspension 2 spray intranasal DAILY PRN (Reason: Congestion) Rx Instructions: administer into each nostril betamethasone dipropionate 0.05 % cream 1 applic topical BID PRN (Reason: skin irritation) Qty: 45 5RF hydroxychloroquine 200 mg tablet 200 mg PO BID Qty: 60 5RF amoxicillin 500 mg capsule 500 mg PO QID Rx Instructions: STARTED 12/14/23 FOR 10 DAYS acetaminophen [Tylenol Extra Strength] 500 mg Tablet 1,000 mg PO Q6H PRN (Reason: PAIN/FEVER) ibuprofen 200 mg Tablet 600 mg PO Q6H PRN (Reason: PAIN/FEVER) Referrals Referrals: Marry Dai DO [Primary Care Provider] -
--- NOTE | 2023-12-17 02:22 | CT Scan Report ---
Exam(s): CT FACIAL With Contrast IV Amt: 93 ml opti 320 EXAM: CT Head and Maxillofacial With Intravenous Contrast CLINICAL HISTORY: Reason for exam: left facial swelling/pain. TECHNIQUE: Axial computed tomography images of the head/brain and face with intravenous contrast. CTDI is 36.26 mGy and DLP is 668.25 mGy-cm. Automated exposure control was utilized for the study. A dose lowering technique was utilized adhering to the principles of ALARA. CONTRAST: Patient received 93 ml opti 320 of IV contrast COMPARISON: No relevant prior studies available. FINDINGS: Brain: Unremarkable. No hemorrhage. No edema. Normal enhancement. Ventricles: Unremarkable. No ventriculomegaly. Bones/joints: No acute fracture. There is a periapical lucency about tooth #9. Soft tissues: There is a small periosteal abscess over the left anterior maxilla measuring 9.8 x 8.0 x 6.6 mm with extensive inflammation of the surrounding soft tissues. Prominent cervical lymph nodes. Sinuses: Unremarkable as visualized. No acute sinusitis. Mastoid air cells: Unremarkable as visualized. No mastoid effusion. Orbits: Unremarkable as visualized. IMPRESSION: Findings concerning for periapical abscess about tooth #9 with adjacent periosteal abscess measuring 9.8 x 8.0 x 6.6 mm with extensive inflammation of the surrounding soft tissues. Recommend dental consult. Communications: Verify Receipt Electronically signed by: Pauly Ramirez MD 12/17/23 02:21 AM
[2023-12-17 02:34] LABS: Potassium 3.8 mmol/L (3.5-5.1)
--- NOTE | 2023-12-17 03:36 | History & Physical Report ---
Date of Service December 17, 2023 Assessment & Plan (1) Acute periapical abscess: Plan: - Abscess noted on CT scan, no signs of osteomyelitis - no leucocytosis, afebrile - started on Unasyn in ED; plan to continue - consult oromaxillary surgery for evaluation - NPO pending eval, LR@125ml/hr while NPO - Tylenol 1000mg q8 and morphine 2mg q4H for pain (2) Abscess of periosteum without osteomyelitis: Plan: As per above (3) Asthma: Plan: - prn albuterol inhaler (4) Subacute cutaneous lupus erythematosus: Plan: - continue hydroxychloroquine Plan Diet: NPO pending surgery eval VTE Prophylaxis: SCD Code: Full History of Present Illness Primary Care Provider: Marry Dai DO 28 year old female with a past medical history of Subacute cutaneous lupus erythematosus presenting with dental abscess. Pain in tooth started on Wednesday. Started on amoxicillin 12/13. Worsening pain throughout the week. Swelling in left cheek started today. Denies fever/chills, nausea, vomiting. Is scheduled to see dentist next week. In ED CT showed periapical abscess about tooth #9 with adjacent periosteal abscess measuring 9.8 x 8.0 x 6.6 mm with extensive inflammation of the surrounding soft tissues. S/p Unasyn, Decadron, 1LNSS. Allergies Allergy/AdvReac Type Severity Reaction Status Date / Time guaifenesin AdvReac Intermediate Jittery Verified 12/17/23 00:05 Home Medications Medication Instructions Recorded Confirmed Type fluticasone propionate 50 2 spray intranasal DAILY PRN 11/09/22 12/17/23 History mcg/actuation nasal Congestion spray,suspension (Flonase Allergy Relief) betamethasone dipropionate 0.05 % 1 applic topical BID PRN skin 03/08/23 12/17/23 Rx topical cream irritation #45 grams albuterol sulfate 90 mcg/actuation 2 puff inhalation Q6H PRN 08/31/23 12/17/23 Rx aerosol inhaler shortness of breath or wheezing #8.5 grams hydroxychloroquine 200 mg tablet 200 mg PO BID #60 tabs 10/06/23 12/17/23 Rx acetaminophen 500 mg tablet 1,000 mg PO Q6H PRN PAIN/FEVER 12/17/23 12/17/23 History (Tylenol Extra Strength) amoxicillin 875 mg-potassium 1 tab PO Q12H facial infection #20 12/17/23 Rx clavulanate 125 mg tablet tabs ibuprofen 200 mg tablet 600 mg PO Q6H PRN PAIN/FEVER 12/17/23 12/17/23 History Past Med/Surg History Medical History (Updated 12/17/23 @ 13:32 by Javi Mesa DMD) Facial abscess Encounter for care and examination after delivery 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 Asthma Chronic constipation Pre-hypertension Tobacco use Cholelithiasis Leukopenia Hyperhidrosis Herpes simplex Anxiety and depression Gestational hypertension Surgical History H/O wisdom tooth extraction S/P excision of ganglion cyst Family History Mother Alcohol abuse Anxiety Depression Bipolar disorder Father Alcohol abuse Drug abuse Sister Gallbladder disease Breast cancer, Onset Age: 30 Grandmother (Maternal) Breast cancer Grandfather (Maternal) Myocardial infarction Aunt Uterine cancer Other Hypertension Denies family history of Colon cancer Ovarian cancer Prostate cancer Social History Smoking Status: Current every day smoker Tobacco Type: Cigarettes Age Started Using Tobacco: 12; packs per day: 1; Cigarettes Per Day: 1 pack; Second Hand Exposure: No; Do You Dip or Chew Tobacco: No; Hx Alcohol Use: No Hx Substance Use: No Preferred Language: Maori Communication Ability: Effective Visual Impairment: No Limitations Hearing Ability: Normal Blog Writer Required: No Beliefs That Will Affect Care: None marital status: marital status details: JOO Warren (33) [phone] Current Living Situation: Family Current Living Situation Comment: son, daughter and step child. dogs, cat current occupational status: employed current occupation: [employer] How many Children do You have Comment: 2 biological children, 1 step child Feels Safe at Home: Yes Childhood Exposure to Second-Hand Smoke: Yes Diet: regular caffeine: Yes (Soda x occasionally Energy drinks occasionally) during the past year weight has: remained stable Dental Care, Regularly: No Physical Activity Frequency: Does not Exercise Physical Activity Frequency Comment: at work Seatbelt Use: always Sunscreen Use: Yes Assistive Devices: None Review of Systems Review of Systems: As per above Physical Exam Physical Exam: Constitutional: well-appearing, no acute distress HEENT: NCAT, no conjunctival injection, swelling mild erythema left cheek CV: regular rhythm, no murmur appreciated, extremities well-perfused, no LE edema Resp: CTABL, no wheezes/rales/rhonchi appreciated, no increased work of breathing GI: soft, nondistended, nontender MSK: no gross deformities appreciated Skin: warm, dry, no rash appreciated Neuro: alert, oriented, no focal neurologic deficit appreciated Results & Data Results & Data Vital Signs (Past 12 Hours) Vital Signs Temp Pulse Pulse Resp BP BP Pulse Ox 12/17/23 03:00 83 16 141/85 H 97 12/16/23 23:38 12/16/23 22:37 36.5 C 107 H 18 167/91 H 100 O2 Del Method 12/17/23 03:00 Room Air 12/16/23 23:38 Room Air 12/16/23 22:37 Room Air Supervising Physician Co-Signing Physician Notes Attending addendum: I have physically seen this patient, have supervised the medical residents activities, and agree with the H&P unless as otherwise noted. Assessment and Plan: Periapical abscess tooth #9/adjacent periosteal abscess- Continue Unasyn 3.0 g IV begun in the ED NPO LR 125 MLS per hour Acetaminophen 1 g IV every 8 hours as needed for mild pain or fever Morphine sulfate 2 mg IV every 4 hours as needed for moderate to severe pain Maxillofacial surgery Dr. Mesa to see patient Asthma- Butyryl HFA 2 puffs every 4 hours as needed Subacute cutaneous lupus erythematosus- Continue hydroxychloroquine when able to swallow Resident Activity Tracking Resident Involvement: Resident Care Provided Care Provided: Adult Hospital Medicine
[2023-12-17] MEDS ORDERED: ALBUTEROL HFA 8 GM INHALER INH PRN (03:57)
[2023-12-17] MEDS ORDERED: FLUTICASONE PROPIONATE NA SPR 16 GM BTL PRN (03:57)
[2023-12-17] MEDS ORDERED: MoRPHine SULFATE 2 MG/ML CARP IV PRN (03:57)
[2023-12-17] MEDS: LACTATED RINGER'S 1,000 ML IV SCH (04:12)
[2023-12-17] MEDS: AMPICILLIN/SULBACTAM SOD 3,000 MG in SODIUM CHLOR 0.9% MINI-B 100 ML IV SCH (05:44)
--- NOTE | 2023-12-17 07:02 | Hospitalist Progress Note ---
Date of Service December 17, 2023 Assessment & Plan (1) Acute periapical abscess: Plan: - Abscess noted on CT scan, no signs of osteomyelitis - no leucocytosis, afebrile - on Unasyn - consult oromaxillary surgery for evaluation - NPO pending eval, LR@125ml/hr while NPO - Tylenol 1000mg q8 and morphine 2mg q4H for pain (2) Abscess of periosteum without osteomyelitis: Plan: As per above (3) Asthma: Plan: - prn albuterol inhaler (4) Subacute cutaneous lupus erythematosus: Plan: - continue hydroxychloroquine Plan Diet: NPO pending surgery eval VTE Prophylaxis: SCD Code: Full Admission and Anticipated Discharge Date Admission Date: December 17, 2023 Subjective 28 y/o female here due to periapical abscess. Oral maxillofacial surgeon to see her today possible I&D. She continue on NPO. Refers her pain had improved. Denied any SOB, chest pain, diarrhea, vomiting or abdominal pain Review of Systems Review of Systems: As per above Physical Exam Constitutional: WD/WN, vitals as above Respiratory: normal respiratory effort, lungs clear to auscultation Cardiovascular: RRR, no murmur, no edema Gastrointestinal (Abdomen): normal bowel sounds, soft, nontender, no hepatosplenomegaly Musculoskeletal: no cyanosis or clubbing, extremities motor strength 5/5 Results & Data Results & Data Vital Signs (Past 12 Hours) Vital Signs Temp Pulse Pulse Resp BP BP Pulse Ox 12/17/23 04:27 36.7 C 76 16 151/80 H 99 12/17/23 03:00 83 16 141/85 H 97 12/16/23 23:38 12/16/23 22:37 36.5 C 107 H 18 167/91 H 100 O2 Del Method 12/17/23 04:27 Room Air 12/17/23 03:00 Room Air 12/16/23 23:38 Room Air 12/16/23 22:37 Room Air Resident Activity Tracking Resident Involvement: Resident Care Provided Care Provided: Adult Hospital Medicine
[2023-12-17] MEDS: HYDROXYCHLOROQUINE SULFATE 200 MG TAB PO SCH (08:07)
--- NOTE | 2023-12-17 10:58 | Oral/Maxillofacial Consult ---
Date of Consultation December 17, 2023 Assessment & Plan (1) Pain due to dental caries: History of Present Illness Attending Physician: Nury Metcalf MD History of Present Illness This 28-year-old female patient presents to the emergency department via private vehicle for evaluation of left-sided facial pain and swelling. The patient states the pain started earlier in the week in her left upper teeth. She states she contacted her dentist and was started on amoxicillin which she has been taking for the past 2 days. The patient states the dental pain specifically seems to have improved, but she is continuing to experience facial pain on the left side. She states the area under her left eye appears somewhat inflamed. She has been taking Tylenol and ibuprofen with minimal improvement of her symptoms. She denies any fever or chills. No nausea or vomiting. She is scheduled to actually follow-up with her dentist next Wednesday. CT imaging was performed reviewed by myself and radiologist as noted. The patient has concerning findings for a periapical abscess with adjacent periosteal abscess and extensive inflammation of the surrounding soft tissues. Dental consultation was recommended. There is a radiolucent area above # 9. This is the etiology of the left infraorbital swelling. The tooth looks to be sound and a root canal procedure should be considered. Given her response to the IV antibiotics I will make a decision regarding the need or an I&D vs discharge on oral antibiotics and seeing her dentist on December 20 for evaluation for root canal. The case management was discussed with me ( Dr. Mesa, maxillofacial surgeon on- call) I did offer for the patient to be admitted with IV antibiotics and I would see her with possible surgery tomorrow afternoon versus discharged home with outp atient follow-up with her dentist on Wednesday as previously scheduled, but starting the patient on Augmentin in place of the amoxicillin. I requested that the patient remain n.p.o. for a possible procedure later in the day. I evaluated Suha this afternoon--The IV antibiotics has brought down the swelling remarkable well. There is no indication for an I&D. I will suggest she be discharged this afternoon on Augmentin and follow up with her dentist for a root canal on DECEMBER 20. No other oral issues noted. OK for D/C today Allergies Allergy/AdvReac Type Severity Reaction Status Date / Time guaifenesin AdvReac Intermediate Jittery Verified 12/17/23 00:05 Home Medications Medication Instructions Recorded Confirmed Type fluticasone propionate 50 2 spray intranasal DAILY PRN 11/09/22 12/17/23 History mcg/actuation nasal Congestion spray,suspension (Flonase Allergy Relief) betamethasone dipropionate 0.05 % 1 applic topical BID PRN skin 03/08/23 12/17/23 Rx topical cream irritation #45 grams albuterol sulfate 90 mcg/actuation 2 puff inhalation Q6H PRN 08/31/23 12/17/23 Rx aerosol inhaler shortness of breath or wheezing #8.5 grams hydroxychloroquine 200 mg tablet 200 mg PO BID #60 tabs 10/06/23 12/17/23 Rx acetaminophen 500 mg tablet 1,000 mg PO Q6H PRN PAIN/FEVER 12/17/23 12/17/23 History (Tylenol Extra Strength) amoxicillin 500 mg capsule 500 mg PO QID 12/17/23 12/17/23 History ibuprofen 200 mg tablet 600 mg PO Q6H PRN PAIN/FEVER 12/17/23 12/17/23 History Patient History Medical History (Updated 12/17/23 @ 13:32 by Javi Mesa DMD) Facial abscess Encounter for care and examination after delivery 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 Asthma Chronic constipation Pre-hypertension Tobacco use Cholelithiasis Leukopenia Hyperhidrosis Herpes simplex Anxiety and depression Gestational hypertension Surgical History H/O wisdom tooth extraction S/P excision of ganglion cyst Family History Mother Alcohol abuse Anxiety Depression Bipolar disorder Father Alcohol abuse Drug abuse Sister Gallbladder disease Breast cancer, Onset Age: 30 Grandmother (Maternal) Breast cancer Grandfather (Maternal) Myocardial infarction Aunt Uterine cancer Other Hypertension Denies family history of Colon cancer Ovarian cancer Prostate cancer Social History Smoking Status: Current every day smoker Tobacco Type: Cigarettes Age Started Using Tobacco: 12; packs per day: 1; Cigarettes Per Day: 1 pack; Second Hand Exposure: No; Do You Dip or Chew Tobacco: No; Tobacco Cessation Education Requested by Patient: No Hx Alcohol Use: No Hx Substance Use: No Preferred Language: Kiswahili Communication Ability: Effective Visual Impairment: No Limitations Hearing Ability: Normal Do All Operator Required: No Beliefs That Will Affect Care: None marital status: marital status details: JOO Warren (33) [phone] Current Living Situation: Family Current Living Situation Comment: son, daughter and step child. dogs, cat current occupational status: employed current occupation: [employer] How many Children do You have Comment: 2 biological children, 1 step child Other Information That Helps Us Care for You: No Feels Safe at Home: Yes Safety Concerns: Feels Safe At This Time Childhood Exposure to Second-Hand Smoke: Yes Diet: regular caffeine: Yes (Soda x occasionally Energy drinks occasionally) during the past year weight has: remained stable Dental Care, Regularly: No Physical Activity Frequency: Does not Exercise Physical Activity Frequency Comment: at work Seatbelt Use: always Sunscreen Use: Yes Assistive Devices: None Results & Data Vital Signs (Past 12 Hours) Vital Signs Temp Pulse Resp BP Pulse Ox O2 Del Method 12/17/23 07:13 36.8 C 76 14 117/69 98 Room Air 12/17/23 04:27 36.7 C 76 16 151/80 H 99 Room Air 12/17/23 03:00 83 16 141/85 H 97 Room Air 12/16/23 23:38 Room Air PG Care Time/CCT Total # of Minutes Spent Total Time Spent with Patient: Total time spent is greater than 50% in coordination of care (as documented) at patient's floor/unit and/or counseling patient: Coding Level of Care Code 86334 OFFICE CONSULT LVL Diagnoses Pain due to dental caries K02.9
[2023-12-17] MEDS: ACETAMINOPHEN 500 MG TAB PO PRN (11:30)
--- NOTE | 2023-12-17 15:45 | Discharge Summary ---
Date of Service December 17, 2023 Admission HPI Per Admitting Provider 28 year old female with a past medical history of Subacute cutaneous lupus erythematosus presenting with dental abscess. Pain in tooth started on Wednesday. Started on amoxicillin 12/13. Worsening pain throughout the week. Swelling in left cheek started today. Denies fever/chills, nausea, vomiting. Is scheduled to see dentist next week. In ED CT showed periapical abscess about tooth #9 with adjacent periosteal abscess measuring 9.8 x 8.0 x 6.6 mm with extensive inflammation of the surrounding soft tissues. S/p Unasyn, Decadron, 1LNSS. Admission Exam Per Admitting Provider Constitutional: well-appearing, no acute distress HEENT: NCAT, no conjunctival injection, swelling mild erythema left cheek CV: regular rhythm, no murmur appreciated, extremities well-perfused, no LE edema Resp: CTABL, no wheezes/rales/rhonchi appreciated, no increased work of breathing GI: soft, nondistended, nontender MSK: no gross deformities appreciated Skin: warm, dry, no rash appreciated Neuro: alert, oriented, no focal neurologic deficit appreciated Principal Diagnosis Denta abscess Discharge Exam Constitutional WD/WN, vitals as above Respiratory normal respiratory effort, lungs clear to auscultation Cardiovascular RRR, no murmur, no edema Gastrointestinal (Abdomen) normal bowel sounds, soft, nontender, no hepatosplenomegaly Musculoskeletal no cyanosis or clubbing, extremities motor strength 5/5 Discharge Data Allergies Allergy/AdvReac Type Severity Reaction Status Date / Time guaifenesin AdvReac Intermediate Jittery Verified 12/17/23 00:05 Consultations 12/17/23 03:30 Consult Oromaxillofacial Surgery Routine 12/17/23 03:31 ED Decision to Admit Stat Ordered Studies 12/16/23 23:38 CT facial bones w con Stat Face CT 12/16/23 23:38 CR Exam(s): CT FACIAL With Contrast IV Amt: 93 ml opti 320 EXAM: CT Head and Maxillofacial With Intravenous Contrast CLINICAL HISTORY: Reason for exam: left facial swelling/pain. TECHNIQUE: Axial computed tomography images of the head/brain and face with intravenous contrast. CTDI is 36.26 mGy and DLP is 668.25 mGy-cm. Automated exposure control was utilized for the study. A dose lowering technique was utilized adhering to the principles of ALARA. CONTRAST: Patient received 93 ml opti 320 of IV contrast COMPARISON: No relevant prior studies available. FINDINGS: Brain: Unremarkable. No hemorrhage. No edema. Normal enhancement. Ventricles: Unremarkable. No ventriculomegaly. Bones/joints: No acute fracture. There is a periapical lucency about tooth #9. Soft tissues: There is a small periosteal abscess over the left anterior maxilla measuring 9.8 x 8.0 x 6.6 mm with extensive inflammation of the surrounding soft tissues. Prominent cervical lymph nodes. Sinuses: Unremarkable as visualized. No acute sinusitis. Mastoid air cells: Unremarkable as visualized. No mastoid effusion. Orbits: Unremarkable as visualized. IMPRESSION: Findings concerning for periapical abscess about tooth #9 with adjacent periosteal abscess measuring 9.8 x 8.0 x 6.6 mm with extensive inflammation of the surrounding soft tissues. Recommend dental consult. Communications: Verify Receipt Electronically signed by: Pauly Ramirez MD 12/17/23 02:21 AM Hospital Course (1) Acute periapical abscess: (2) Abscess of periosteum without osteomyelitis: (3) Asthma: (4) Subacute cutaneous lupus erythematosus: Plan Acute periapical abscess: Abscess of periosteum without osteomyelitis: - Abscess noted on CT scan, no signs of osteomyelitis - no leucocytosis, afebrile - was kept on IV Unasyn - consulted oromaxillary surgery for evaluation - no need for I&D, Continue Augmentin and follow with dentist for root canal on December 20 -d/therese home with rx of augmentin. Total Time Total Time Spent Total Time Spent (In Minutes): <30 Discharge Plan Discharge Items Patient Disposition: Home - Self-Care Reason For Visit: ABCESS Discharge Diagnosis: Acute periapical abscess Activity: Resume your previous activity Non-emergency contact: Primary Care Provider Call non-emergency contact if: you have any medication questions Follow-up/Referrals: Marry Dai DO [Primary Care Provider] - 12/29/23 9:20 am Diet: Regular Addtl Attending Provider Instructions: You were admitted due to an abscess and infected tooth. You were treated with IV anabiotics. After evaluation of the surgeon no surgery is needed. You will continue Augmentin and is recommended with her dentis for a root canal on December 20 Stand-Alone Forms: [facility], Work/School Release, Smoking Cessation Medications and DC Order Prescriptions: Continued albuterol sulfate 90 mcg/actuation HFA aerosol inhaler 2 puff inhalation Q6H PRN (Reason: shortness of breath or wheezing) Qty: 8.5 1RF amoxicillin-pot clavulanate 875-125 mg tablet 1 tab PO Q12H Qty: 20 0RF fluticasone propionate [Flonase Allergy Relief] 50 mcg/actuation spray,suspension 2 spray intranasal DAILY PRN (Reason: Congestion) Rx Instructions: administer into each nostril betamethasone dipropionate 0.05 % cream 1 applic topical BID PRN (Reason: skin irritation) Qty: 45 5RF hydroxychloroquine 200 mg tablet 200 mg PO BID Qty: 60 5RF acetaminophen [Tylenol Extra Strength] 500 mg Tablet 1,000 mg PO Q6H PRN (Reason: PAIN/FEVER) ibuprofen 200 mg Tablet 600 mg PO Q6H PRN (Reason: PAIN/FEVER) Discontinued amoxicillin 500 mg capsule 500 mg PO QID Rx Instructions: STARTED 12/14/23 FOR 10 DAYS Discharge Orders: Discharge Order (Routine); Ordered 12/17/23 Ordered By: Shauna Sanchez/Other Patient Handouts: Dental Abscess Admission Data Admit Date/Time: 12/17/23 03:26 Attending Provider: Nury Metcalf Admit Provider: Lori Casiano Primary Care Provider: Marry Dai Other Providers: Javi Mesa Rick D Other Interventions: Discharge Summary Assessment (RN) Last Done: 12/17/23 15:56 Supervising Physician Co-Signing Physician Notes Attending Physician Supervision Note: I independently interviewed and examined the patient and verified the kent history and physical, reviewed labs and image studies and agree with findings and care plan noted above. Resident Activity Tracking Resident Involvement: Resident Care Provided Care Provided: Adult Hospital Medicine
--- NOTE | 2023-12-18 20:52 | Billing Data ---
Date of Service December 18, 2023 Coding Level of Care Code 29530 INT INP/OBS CARE
== END 2023-12-17 16:57 | disposition home or self-care (01) ==
LOC: ED 22:34 → 3N 22:34 → SUATTDRO 12-17 03:26 → 3N 12-17 03:46